=== PATIENT | male | born 1980 | race Hispanic/Latino ===

== ENCOUNTER 2017-05-21 08:17 | Emergency (ER) | payer OTHER ==
[~2017-05-21] VITALS: Ht 172.7 cm; Wt 84.6 kg
--- OUTSIDE RECORDS SUMMARY | 2017-05-21 08:20 | XMS REPORT | Clinical Summary ---
Author Author [facility] Address Unknown Phone Unavailable Care Team Providers Care Gas Systems Worker Name Role Phone Prem Cancino MD PCP Allergies No Known Allergies Current Medications Prescription Sig. Disp. Refills Start End Date Status Date cholecalciferol, vitamin Take 1 capsule (50,000 8 capsule 0 05/14/19 07/13/19 Active D3, 50,000 unit capsule Units total) by mouth 18 18 once a week for 60 days. Active Problems Not on file Encounters Date Type Specialty Care Team Description 05/18/2017 Emergency Emergency Medicine Emilia Raygoza MD Chest pain, unspecified - type (Primary Dx) 05/19/2017 05/13/2017 Orders Only Internal Medicine Prem Cancino MD 05/06/2017 Office Visit Internal Medicine Prem Cancino MD Routine general medical examination at a health care facility (Primary Dx); Immunity status testing after 05/20/2016 Family History Medical History Relation Name Comments Hypertension Father Diabetes Maternal Grandfather Parkinsonism Mother Diabetes Paternal Grandfather Diabetes Paternal Grandmother No Known Problems Sister Relation Name Status Comments Father Alive Maternal Grandfather Maternal Grandmother Mother Alive Paternal Grandfather Paternal Grandmother Sister Alive Social History Tobacco Use Types Packs/Day Years Used Date Never Smoker Smokeless Tobacco: Never Used Alcohol Use Drinks/Week oz/Week Comments No rare Sex Assigned at Date Recorded Not on file Last Filed Vital Signs Vital Sign Reading Time Taken Blood Pressure 128/80 05/19/2017 12:33 AM CDT Pulse 95 05/19/2017 12:33 AM CDT Temperature 36.9 C (98.5 F) 05/18/2017 2:31 PM CDT Respiratory Rate 15 05/19/2017 12:33 AM CDT Oxygen Saturation 100% 05/19/2017 12:33 AM CDT Inhaled Oxygen - - Concentration Weight 86.2 kg (190 lb) 05/06/2017 10:38 AM CDT Height 170.2 cm (5' 7") 05/18/2017 2:31 PM CDT Body Mass Index 29.76 05/06/2017 10:38 AM CDT Plan of Treatment Date Type Specialty Care Team Description 05/26/2017 Office Visit Internal Medicine Prem Cancino MD [address] [facility] [address] [place], [place] [id number] 08/12/2017 Office Visit Internal Medicine Prem Cancino MD [address] [facility] [address] [place], [place] [id number] Health Maintenance Due Date Last Done Comments INFLUENZA VACCINE 09/08/2017 Results * Troponin (05/18/2017 9:35 PM) Only the most recent of 2 results within the time period is included. Component Value Ref Range Troponin <0.30 0.00 - 0.30 ng/mL Comment: 0.30 - 1.49 ng/ml May indicate increased risk of acute coronary syndrome. >=1.5 ng/ml Consistent with acute myocardial infarction. The diagnostic value of a single normal or non-diagnostic result is questionable. Serial samples at 2-6 hour intervals are required to rule out acute myocardial injury. Specimen Performing Laboratory Plasma specimen [facility]PART[facility] OF PATHOLOGY AND GENOMIC MEDICINE [address] [place], [place] [id number] * CT Angiogram Pe Chest (05/18/2017 5:31 PM) Specimen Performing Laboratory [place] [id number] Narrative EXAMINATION: CT ANGIOGRAM PE CHEST CLINICAL HISTORY: chest paintachycardiashortness of breath TECHNIQUE:PE PROTOCOL: CT angiographic images of the chest were obtained during intravenous administration of iodinated contrast. Computerized reformatted images and 3-D MIP images were also obtained and archived (CT pulmonary embolus protocol). CT imaging was performed with iterative reconstruction technique and/or automated exposure control to reduce radiation dose. COMPARISON: Chest radiograph dated 05/18/2017 FINDINGS: CHEST: 1. Pulmonary Arteries: No definite CT scan evidence of acute pulmonary embolus. 2. Aorta: The thoracic aorta is nonaneurysmal. Bovine configuration of the aortic arch. Pulmonary trunk is normal in caliber. 3. Heart: The heart is normal in size. 4. Pericardial Fluid: No pericardial effusion. 5. Mediastinum: No suspiciously enlarged lymph nodes are seen in the base the neck. There are no enlarged lymph nodes present in either axilla. No enlarged mediastinal or hilar lymph nodes by CT size criteria. 4. Airways: Central airways are patent. There is no evidence of a discrete endobronchial lesion. 5. Lungs: No acute infiltrates or suspicious pulmonary nodules or masses. The lungs are clear. 6. Pleural Fluid: No pleural effusions. 7. Bones: Osseous structures intact. No destructive bony lesions. 8. Upper Abdomen: No suspicious abnormalities. 9. Other Findings: None IMPRESSION: No evidence of pulmonary embolism. [facility]-[id number] Procedure Note [facility], Radiology Results Incoming - 05/18/2017 5:41 PM CDT EXAMINATION: CT ANGIOGRAM PE CHEST CLINICAL HISTORY: chest pain tachycardia shortness of breath TECHNIQUE: PE PROTOCOL: CT angiographic images of the chest were obtained during intravenous administration of iodinated contrast. Computerized reformatted images and 3-D MIP images were also obtained and archived (CT pulmonary embolus protocol). CT imaging was performed with iterative reconstruction technique and/or automated exposure control to reduce radiation dose. COMPARISON: Chest radiograph dated 05/18/2017 FINDINGS: CHEST: 1. Pulmonary Arteries: No definite CT scan evidence of acute pulmonary embolus. 2. Aorta: The thoracic aorta is nonaneurysmal. Bovine configuration of the aortic arch. Pulmonary trunk is normal in caliber. 3. Heart: The heart is normal in size. 4. Pericardial Fluid: No pericardial effusion. 5. Mediastinum: No suspiciously enlarged lymph nodes are seen in the base the neck. There are no enlarged lymph nodes present in either axilla. No enlarged mediastinal or hilar lymph nodes by CT size criteria. 4. Airways: Central airways are patent. There is no evidence of a discrete endobronchial lesion. 5. Lungs: No acute infiltrates or suspicious pulmonary nodules or masses. The lungs are clear. 6. Pleural Fluid: No pleural effusions. 7. Bones: Osseous structures intact. No destructive bony lesions. 8. Upper Abdomen: No suspicious abnormalities. 9. Other Findings: None IMPRESSION: No evidence of pulmonary embolism. [facility]-[id number] * Estimated GFR (05/18/2017 3:35 PM) Component Value Ref Range GFR Non Af Amer >90 mL/min/1.73 m2 GFR Af Amer >90 mL/min/1.73 m2 Comment: Chronic kidney disease: <60 mL/min/1.73m2 Kidney failure: <15 mL/min/1.73m2 The estimated GFR is calculated from the IDMS-traceable Modification of Diet in Renal Disease Equation. The accuracy of the calculation is poor when the creatinine is normal. Calculated values >90 mL/min/1.73m2 are not reported. This equation has not been validated in children (<18 years), women, the elderly (>70 years), or ethnic groups other than Caucasians and Americans. Specimen Performing Laboratory Plasma specimen [facility] DEPARTMENT OF PATHOLOGY [facility] GENOMIC MEDICINE [address] [place] [address] * CBC with platelet and differential (05/18/2017 3:35 PM) Only the most recent of 2 results within the time period is included. Component Value Ref Range WBC 8.94 4.50 - 11.00 k/uL RBC 5.15 4.40 - 6.00 m/uL HGB 14.5 14.0 - 18.0 g/dL HCT 43.1 41.0 - 51.0 % MCV 83.7 82.0 - 100.0 fL MCH 28.2 27.0 - 34.0 pg MCHC 33.6 31.0 - 37.0 g/dL RDW - SD 40.0 37.0 - 55.0 fL MPV 9.1 8.8 - 13.2 fL Platelet count 331 150 - 400 k/uL Nucleated RBC 0.00 /100 WBC Neutrophils 80.5 (H) 39.0 - 69.0 % Lymphocytes 13.2 (L) 25.0 - 45.0 % Monocytes 4.9 0.0 - 10.0 % Eosinophils 0.4 0.0 - 5.0 % Basophils 0.3 0.0 - 1.0 % Immature granulocytes 0.7Comment: "Immature granulocytes" 0.0 - 1.0 % (promyelocytes, myelocytes, metamyelocytes) Specimen Performing Laboratory Blood [facility] OF PATHOLOGY [facility] GENOMIC [facility]ICINE [address] [place] [address] * B natriuretic peptide (05/18/2017 3:35 PM) Component Value Ref Range BNP 4 0 - 100 pg/mL Specimen Performing Laboratory Blood [facility] OF [facility]OLOG[facility]OMIC [facility]ICINE [address] [place] [address] * Comprehensive metabolic panel (05/18/2017 3:35 PM) Only the most recent of 2 results within the time period is included. Component Value Ref Range Sodium 141 135 - 148 mEq/L Potassium 3.6 3.5 - 5.0 mEq/L Chloride 104 98 - 112 mEq/L CO2 23 (L) 24 - 31 mEq/L Anion gap 14 7 - 15 mEq/L Comment: Starting from May , anion gap calculation no longer incorporates potassium. Please note the change. BUN 9 6 - 20 mg/dL Creatinine 0.9 0.7 - 1.2 mg/dL Glucose 146 (H) 65 - 99 mg/dL Calcium 9.9 8.3 - 10.2 mg/dL Protein 7.7 6.3 - 8.3 g/dL Comment: 4.6-7.0 g/dL 1 week 4.4-7.6 g/dL 7 months-1year 5.1-7.3 g/dL 1-2 years 5.6-7.5 g/dL >3 years 6.0-8.0 g/dL 18-150 6.3-8.3 g/dL Albumin 3.8 3.5 - 5.0 g/dL A/G ratio 1.0 0.7 - 3.8 Alkaline phosphatase 111 40 - 129 U/L AST 24 10 - 50 U/L ALT 23 5 - 50 U/L Total bilirubin 0.4 0.0 - 1.2 mg/dL Specimen Performing Laboratory Plasma specimen [facility] OF PATHOLOGY AND GENOMIC MEDICINE [address] [place], [place] [id number] * XR Chest 2 Vw (05/18/2017 3:03 PM) Specimen Performing Laboratory [facility] [address] [place] [address] Narrative EXAMINATION:XR CHEST 2 VW CLINICAL HISTORY:Chest Pain XR CHEST 2 VWimages are submitted COMPARISON:NONE FINDINGS: The cardiac silhouette is normal in size. The pulmonary vasculature is within normal limits. The lung zones are clear. There is no pleural effusion or pneumothorax. IMPRESSION: 1. There is no acute cardiopulmonary disease. [id number] Procedure Note Interface, Radiology Results Incoming - 05/18/2017 3:14 PM CDT EXAMINATION: XR CHEST 2 VW CLINICAL HISTORY: Chest Pain XR CHEST 2 VW images are submitted COMPARISON: NONE FINDINGS: The cardiac silhouette is normal in size. The pulmonary vasculature is within normal limits. The lung zones are clear. There is no pleural effusion or pneumothorax. IMPRESSION: 1. There is no acute cardiopulmonary disease. [id number] * ECG 12 lead (05/18/2017 2:23 PM) Component Value Ref Range Ventricular rate [address] interval 152 QRSD interval 84 QT interval 296 QTC interval 427 P axis 1 64 QRS axis 1 -21 T wave axis 20 EKG impression Sinus tachycardia-Otherwise normal ECG-No previous ECGs available- Specimen Performing Laboratory [facility] [address] [place] [address] * Microscopic Examination (05/08/2017 9:05 AM) Component Value Ref Range WBC, UA 0-5 0 - 5 /hpf RBC, UA 0-2 0 - 2 /hpf Epithelial cells (non None seen 0 - 10 /hpf renal) Mucus, UA Present Not Estab. Bacteria, UA None seen None seen/Few Fasting status Y Specimen Performing Laboratory [facility] Narrative Performed at:[address] [place], [place] [id number] Quality Improvement Coordinator (Rn): Gino Martin MD, Phone:[phone] * Vitamin D 25 hydroxy level (05/08/2017 9:05 AM) Component Value Ref Range Vitamin D, 25-hydroxy 12.2 (L) 30.0 - 100.0 ng/mL Comment: Vitamin D deficiency has been defined by the [place] of Medicine and an Endocrine Society practice guideline as a level of serum 25-OH vitamin D less than 20 ng/mL (1,2). The Endocrine Society went on to further define vitamin D insufficiency as a level between 21 and 29 ng/mL (2). 1. IOM ([place] of Medicine). 2010. Dietary reference intakes for calcium and D. [place]: The National Academies Press. 2. Sonja MF, Daniel MEJIA, Narciso WATSON, et al. Evaluation, treatment, and prevention of vitamin D deficiency: an Endocrine Society clinical practice guideline. JCEM. 2010; 96(7):1911-30. Fasting status Y Specimen Performing Laboratory Blood [facility] Narrative Performed at:[address] [place], [place] [id number] Quality Improvement Coordinator (Rn): Gino Martin MD, Phone:[phone] * Urinalysis, automated with microscopy (05/08/2017 9:05 AM) Component Value Ref Range Specific gravity, urine 1.021 1.005 - 1.030 pH, urine 8.0 (H) 5.0 - 7.5 Color, UA Yellow Yellow Appearance Clear Clear WBC esterase, urine Negative Negative Protein, UA Negative Negative/Trace Glucose, urine Negative Negative Ketones, UA Negative Negative Occult blood, urine Negative Negative Bilirubin, UA Negative Negative Urobilinogen, UA 0.2 0.2 - 1.0 mg/dL Nitrite, UA Negative Negative Microscopic examination CommentComment: Microscopic follows if indicated. Microscopic examination See below:Comment: Microscopic was indicated and was performed. Fasting status Y Specimen Performing Laboratory Urine [facility] Narrative Performed at:[address] [place], [place] [id number] Quality Improvement Coordinator (Rn): Gino Martin MD, Phone:[phone] * Varicella zoster virus Ab, IgG (05/08/2017 9:05 AM) Component Value Ref Range VZV IgG 793 Immune >165 index Comment: Negative <135 Equivocal 135 - 165 Positive >165 A positive result generally indicates exposure to the pathogen or administration of specific immunoglobulins, but it is not indication of active infection or stage of disease. Fasting status Y Specimen Performing Laboratory [facility] Narrative Performed at:[address] [place], [place] [id number] Quality Improvement Coordinator (Rn): Robin Zamora MD, Phone:[phone] * T3, free (05/08/2017 9:05 AM) Component Value Ref Range T3, free 3.9 2.0 - 4.4 pg/mL Fasting status Y Specimen Performing Laboratory Blood [facility] Narrative Performed at:[address] [place], [place] [id number] Quality Improvement Coordinator (Rn): Gino Martin MD, Phone:[phone] * Thyroid stimulating hormone (05/08/2017 9:05 AM) Component Value Ref Range TSH 1.310 0.450 - 4.500 uIU/mL Fasting status Y Specimen Performing Laboratory Blood [facility] Narrative Performed at:[address] [place], [place] [id number] Quality Improvement Coordinator (Rn): Gino Martin MD, Phone:[phone] * T4, free (05/08/2017 9:05 AM) Component Value Ref Range T4, free 1.26 0.82 - 1.77 ng/dL Fasting status Y Specimen Performing Laboratory Blood [facility] Narrative Performed at:[address] [place], [place] [id number] Quality Improvement Coordinator (Rn): Gino Martin MD, Phone:[phone] * Hemoglobin A1c (05/08/2017 9:05 AM) Component Value Ref Range Hemoglobin A1C 5.8 (H) 4.8 - 5.6 % Comment: Pre-diabetes: 5.7 - 6.4 Diabetes: >6.4 Glycemic control for adults with diabetes: <7.0 Fasting status Y Specimen Performing Laboratory Blood [facility] Narrative Performed at:[address] [place], [place] [id number] Quality Improvement Coordinator (Rn): Gino Martin MD, Phone:[phone] * Vitamin B12 level (05/08/2017 9:05 AM) Component Value Ref Range Vitamin B12 836 232 - 1,245 pg/mL Fasting status Y Specimen Performing Laboratory Blood [facility] Narrative Performed at:[address] [place], [place] [id number] Quality Improvement Coordinator (Rn): Gino Martin MD, Phone:[phone] * Lipid panel (05/08/2017 9:05 AM) Component Value Ref Range Cholesterol 210 (H) 100 - 199 mg/dL Triglycerides 83 0 - 149 mg/dL HDL cholesterol 33 (L) >39 mg/dL VLDL cholesterol jack 17 5 - 40 mg/dL LDL cholesterol 160 (H) 0 - 99 mg/dL calculated Non-HDL cholesterol 177 (H) 0 - 129 mg/dL Fasting status Y Specimen Performing Laboratory Blood [facility] Narrative Performed at:[address] [place], [place] [id number] Quality Improvement Coordinator (Rn): Gino Martin MD, Phone:[phone] after 05/20/2016 Insurance Payer Benefit Subscriber ID Type Phone Address Plan / Group [facility] [id number] PPO [employer] H[employer]/POS/[place] [address] [place] [place] [address]
== END 2017-05-21 09:25 | disposition home or self-care (01) ==
LOC: FSED 08:17
DX: J02.9 Acute pharyngitis, unspecified (principal)
CPT/HCPCS: 71046; 83518; 99283

== ENCOUNTER 2017-11-08 08:30 | Emergency (ER) | payer OTHER ==
[~2017-11-08] VITALS: Ht 172.7 cm; Wt 81.6 kg
[2017-11-08] MEDS ORDERED: IOPAMIDOL 370 MG/ML 50ML INFUS..BTL INJ ONE (10:30)
--- NOTE | 2017-11-08 10:53 | Diagnostic Imaging Report ---
PROCEDURE:CT ABD/PEL WITH CONTRAST-HOPD COMPARISON:None. INDICATIONS:abd pain hx of umbilical hernia Technique: Axial CT images of the abdomen and pelvis were obtained after the intravenous administration of 93 cc Isovue-370. Coronal and sagittal reformatted images were available for review. FINDINGS: Lung bases: Unremarkable. Liver: No focal hepatic lesion or intrahepatic biliary ductal dilatation. Gallbladder: No radiopaque calculi, wall thickening, or pericholecystic inflammation Spleen: No splenomegaly or focal splenic lesion Pancreas: No focal mass or ductal dilatation. Adrenals: No nodules Kidneys: No hydronephrosis, calculi, solid or cystic renal mass lesions Pelvic organs: The urinary bladder is unremarkable. Prostate and seminal vesicles appear normal. GI tract: The large bowel shows no evidence of distention or wall thickening. The distal large bowel is collapsed and poorly evaluated. The appendix is normal. The small bowel shows no evidence of dilatation to suggest obstruction Lymph nodes: No pelvic sidewall, retroperitoneal, or mesenteric lymphadenopathy. Vasculature: The abdominal aorta, major branch vessels, and iliac arterial systems are well-visualized and patent. The superior mesenteric artery is replaced to the superior mesenteric artery. A single renal artery perfuses each kidney. The portal vein, splenic vein, and the central superior mesenteric vein are patent Peritoneum/retroperitoneum: No ascites. No pneumoperitoneum. Soft tissues: No focal soft tissue abnormalities with the exception of a small fat-containing umbilical hernia. The omental fat within the hernia is mildly inflamed. Bones: No osseous destructive lesions. CONCLUSION: Small umbilical hernia contains inflamed omental fat. No bowel within the hernia sac; no evidence of bowel obstruction. Otherwise no acute intra-abdominal or pelvic CT abnormalities. Dictated by: Ryan Barrera M.D. on 11/08/2017 at 11:01 Electronically approved by: Ryan Barrera M.D. on 11/08/2017 at 11:01
[2017-11-08] MEDS ORDERED: KETOROLAC TROMETHAMINE 30 MG/ML VIAL IV STA (11:31)
== END 2017-11-08 12:17 | disposition home or self-care (01) ==
LOC: FSED 08:30
DX: R10.33 Periumbilical pain (principal); K42.9 Umbilical hernia without obstruction or gangrene
CPT/HCPCS: 74177; 80048; 80076; 81003; 85025; 99284; J1885; Q9967

== ENCOUNTER 2018-12-16 15:54 | Emergency (ER) | payer OTHER ==
[~2018-12-16] VITALS: Ht 170.2 cm; Wt 81.6 kg
--- OUTSIDE RECORDS SUMMARY | 2018-12-16 15:56 | XMS REPORT ---
Author Author [facility] Address Unknown Phone Unavailable Care Team Providers Care Watch Engineer Name Role Phone Jami CONNOR Unavailable Unavailable Problems This patient has no known problems. Allergies, Adverse Reactions, Alerts This patient has no known allergies or adverse reactions. Medications This patient has no known medications. Results Test Description Test Time Test Comments Text Results Atomic Results Result Comments CT ABD/PEL WITH CONTRAST-HOPD 2017-11-08 11:01:00 [place] [address] Patient Name: YOUNG VACA MR #: [id number] : 1980 Age/Sex: 37/M Req #: [id number] Adm Physician: Ordered by: KRISTINE CONNOR MD Report #: [id number] Location: [facility] Room/Bed: Procedure: [id number] HOPD/CT ABD/PEL WITH CONTRAST- HOPD Exam Date: 11/08/17 Exam Time: 1010 REPORT STATUS: Signed PROCEDURE: CT ABD/PEL WITH CONTRAST-HOPD COMPARISON: None. INDICATIONS: abd pain hx of umbilical hernia Technique: Axial CT images of the abdomen and pelvis were obtained after the intravenous administration of 93 cc Isovue-370. Coronal and sagittal reformatted images were available for review. FINDINGS: Lung bases: Unremarkable. Liver: No focal hepatic lesion or intrahepatic biliary ductal dilatation. Gallbladder: No radiopaque calculi, wall thickening, or pericholecystic inflammation Spleen: No splenomegaly or focal splenic lesion Pancreas: No focal mass or ductal dilatation. Adrenals: No nodules Kidneys: No hydronephrosis, calculi, solid or cystic renal mass lesions Pelvic organs: The urinary bladder is unremarkable. Prostate and seminal vesicles appear normal. GI tract: The large bowel shows no evidence of distention or wall thickening. The distal large bowel is collapsed and poorly evaluated. The appendix is normal. The small bowel shows no evidence of dilatation to suggest obstruction Lymph nodes: No pelvic sidewall, retroperitoneal, or mesenteric lymphadenopathy. Vasculature: The abdominal aorta, major branch vessels, and iliac arterial systems are well-visualized and patent. The superior mesenteric artery is replaced to the superior mesenteric artery. A single renal artery perfuses each kidney. The portal vein, splenic vein, and the central superior mesenteric vein are patent Peritoneum/retroperitoneum: No ascites. No pneumoperitoneum. Soft tissues: No focal soft tissue abnormalities with the exception of a small fat-containing umbilical hernia. The omental fat within the hernia is mildly inflamed. Bones: No osseous destructive lesions. CONCLUSION: Small umbilical hernia contains inflamed omental fat. No bowel within the hernia sac; no evidence of bowel obstruction. Otherwise no acute intra-abdominal or pelvic CT abnormalities. Dictated by: Danyelle Bonilla M.D. on 11/08/2017 at 11:01 Electronically approved by: Danyelle Bonilla M.D. on 11/08/2017 at 11:01 Dictated By: DANYELLE BONILLA MD 1101 Transcribed By: ROGELIO on 11/08/17 1101 COPY TO: KRISTINE CONNOR MD
[2018-12-16] MEDS ORDERED: MECLIZINE HCL 12.5 MG TAB PO ONE ×2 (16:45→17:00)
[2018-12-16] MEDS ORDERED: MECLIZINE HCL 12.5 MG TAB ONE (16:51)
[2018-12-16] MEDS ORDERED: SODIUM CHLORIDE 0.9% 50ML 50 ML ONE (17:23)
[2018-12-16] MEDS ORDERED: IOPAMIDOL 370 MG/ML 200 ML INFUS..BTL INJ ONE (17:23)
[2018-12-16 18:46] VITALS: BP 151/81
--- NOTE | 2018-12-16 20:30 | Diagnostic Imaging Report ---
History:Dizziness, vertigo and unsteady gait. , Comparison studies:None Technique: Multidetector axial images were obtained from the foramen magnum to the vertex without contrast. The images were reconstructed using brain and bone algorithms. Thin section brain images were reformatted into coronal and sagittal planes. Multidetector helical axial images were acquired through the head during infusion of iodinated contrast material. Coronal and sagittal images reconstructed from the axial data. Multi-planar and 3-D reconstructed images were obtained. Dose modulation, iterative reconstruction, and/or weight based adjustment of the mA/kV was utilized to reduce the radiation dose to as low as reasonably achievable. Intravenous contrast: 100 cc of Isovue 370. Findings: CT brain: Skull/scalp: No lytic or blastic. lesions. No surgical changes. Parenchyma: No abnormal density. No acute hemorrhage, mass or acute major vascular territorial infarct. Arteries: No density suggestive of thrombosis. Dural sinuses: No abnormal density suggestive of thrombosis. Ventricles: No hydrocephalus or displacement. Extra-axial spaces: No abnormal density. Brain volume: Normal for age. Craniocervical junction: No mass, Chiari malformation, or basilar invagination. Sella: No mass. Paranasal/mastoid sinuses: Mild mucosal thickening in right maxillary sinus. Partial opacification and sclerosis of left mastoid air cells possibly related to chronic inflammation process. CTA brain: Internal carotid arteries: Patent, no abnormalities in bilateral A1 and M1 segments. Vertebral arteries: Patent. Basilar artery: Patent. Posterior cerebral arteries: Patent. Anatomical variants: Anterior communicating artery :Not well-visualized. Posterior communicating arteries: Not visualized. Vertebral arteries: Codominant. IMPRESSION: CT brain: No intracranial abnormality. CTA brain: No intracranial vascular abnormality. Signed by: Dr. Sarah Partida M.D. on 12/16/2018 8:26 PM
== END 2018-12-16 18:50 | disposition home or self-care (01) ==
LOC: FSED 15:54
DX: R42 Dizziness and giddiness (principal)
CPT/HCPCS: 70496; 80053; 85025; 99284; J8597; Q9967